=== PATIENT | male | born 1985 | race Caucasian/White ===

== ENCOUNTER 2023-10-24 15:11 | Emergency (ER) | payer OTHER ==
--- NOTE | 2023-10-24 15:59 | ED Physician Documentation ---
PD HPI UPPER EXT INJURY - Stated complaint Stated Complaint: RT FINGER LAC - Chief complaint Chief Complaint: Laceration - History obtained from History obtained from: Patient - Additonal information Additional information: Patient is a 38-year-old male presenting for evaluation of laceration to his right index finger that occurred with a shaving tool. Patient does not take blood thinners. He is left-hand dominant. He is unsure of his last tetanus but declines a tetanus vaccine today. Review of Systems Skin: reports: Laceration (s) PD PAST MEDICAL HISTORY - Past Medical History Past Medical History: Yes Respiratory: Asthma - Past Surgical History Past Surgical History: No - Present Medications Home Medications: Ambulatory Orders Medication Instructions Recorded Confirmed Albuterol Sulfate [Proair 90 mcg IH PRN PRN 10/24/23 10/24/23 Digihaler] - Allergies Allergies/Adverse Reactions: Allergies Allergy/AdvReac Type Severity Reaction Status Date / Time No Known Drug Allergies Allergy Verified 10/24/23 15:22 - Social History Does the pt smoke?: No Smoking Status: Never smoker Does the pt drink ETOH?: No Substance Use and Type: Marijuana - Immunizations Immunizations are current?: No PD ED PE NORMAL - General General: Alert and oriented X 3, No acute distress, Well developed/nourished - HEENT HEENT: Atraumatic - Derm Derm: Warm and dry - Extremities Extremities: Other (3 cm laceration on dorsum right index finger over DIP, normal range of motion, brisk cap refill, sensation intact; superficial wound to 3rd digit) - Neuro Neuro: No motor deficit, No sensory deficit Results - Vitals Vitals: Vital Signs - 24 hr 10/24/23 10/24/23 15:20 17:07 Temperature 36.4 C L Heart Rate 80 80 Respiratory 16 18 Rate Blood Pressure 151/97 H 123/91 H O2 Saturation 99 100 Oxygen O2 Source Room air Procedures - Laceration (location) R index Length in cm: 3 Wound type: Linear Neurovascular status: Sensory intact, Motor intact, Vascular intact Tendon involvement: Tendon intact Anesthesia: Lidocaine 1% Wound preparation: Hibiclens, Irrigated copiously NS Skin layer closure: Size #-0 - enter number (4-0 ethilon), Sutures - enter # (7) Other: Patient tolerated well, No complications, Neurovascular intact, Dressing applied, Other (Patient declines tetanus vaccine) PD Medical Decision Making - ED course Complexity details: reviewed results ED course: Patient with injury to her right index finger. Neurovascularly intact. No signs of injury to the bone. Patient has declined a tetanus. Wound was cleaned and irrigated and repaired with sutures. A finger splint was applied to help protect the finger today as it does cross the joint line. Patient counseled on wound care instructions and need to return for suture removal. Departure - Departure Disposition: Home, Self Care Clinical Impression: Laceration of index finger Condition: Stable Instructions: ED Laceration Ext Sutr Stap Tape Comments: You have 7 sutures that were placed into your left index finger for laceration. These should be kept for 14 days. Please take caution with this wound as it is over the joint line. Come back for any signs of infection which would include: Redness, swelling, drainage, increased pain, or fevers. You can wash it soap and water. Keep it covered and moist with bacitracin ointment which is available over the counter; avoid neosporin. Follow-up with your physician in about 14 days for suture removal. Forms: PCP List Discharge Date/Time: 10/24/23 17:16
[2023-10-24] MEDS: lidocaine 1% 20 ML MDV SUBQ ONE (16:19)
[2023-10-24] MEDS: lidocaine 1% 20 ML MDV SUBQ STA (16:20)
[2023-10-24 17:08] VITALS: BP 123/91; O2SAT 100
== END 2023-10-24 17:16 | disposition home or self-care (01) ==
LOC: ED 15:11
DX: S61.210A Laceration without foreign body of right index finger without damage to nail, initial encounter (principal); W27.8XXA Contact with other nonpowered hand tool, initial encounter
CPT/HCPCS: 12002; 99283